=== PATIENT | male | born 1985 | race Two or more races ===

== ENCOUNTER 2018-05-29 22:11 | Emergency (ER) | payer SELFPAY ==
[~2018-05-29] VITALS: Ht 172.7 cm; Wt 86.4 kg
[2018-05-29] MEDS ORDERED: HYDROCODONE/ACETAMINOPHEN 5-325 MG TABLET PO ONE (22:45)
[2018-05-30 01:00] VITALS: BP 128/77
== END 2018-05-30 01:47 | disposition home or self-care (01) ==
LOC: EMS 22:12
DX: S02.652A Fracture of angle of left mandible, initial encounter for closed fracture (principal); W01.198A Fall on same level from slipping, tripping and stumbling with subsequent striking against other object, initial encounter; Y93.89 Activity, other specified; Y92.091 Bathroom in other non-institutional residence as the place of occurrence of the external cause; Y99.8 Other external cause status
CPT/HCPCS: 70486; 99284

== ENCOUNTER 2018-06-02 22:29 | Emergency (ER) | payer SELFPAY ==
[~2018-06-02] VITALS: Ht 172.7 cm; Wt 85.0 kg
[2018-06-03] MEDS ORDERED: HYDROCODONE/ACETAMINOPHEN 5-325 MG TABLET PO ONE (02:45)
[2018-06-03 05:45] VITALS: BP 124/74
== END 2018-06-03 06:40 | disposition short-term general hospital (02) ==
LOC: EMS 22:30
DX: S02.652A Fracture of angle of left mandible, initial encounter for closed fracture (principal); W01.0XXA Fall on same level from slipping, tripping and stumbling without subsequent striking against object, initial encounter; Y93.89 Activity, other specified; Y92.89 Other specified places as the place of occurrence of the external cause; Y99.8 Other external cause status
CPT/HCPCS: 99285